=== PATIENT | female | born 1965 | race Caucasian/White ===

== ENCOUNTER → 2017-12-29 10:51 | Outpatient (CLI) | payer OTHER, SELFPAY ==
--- NOTE | 2017-12-29 | DI.MG.S_ITS ---
BILATERAL DIGITAL SCREENING MAMMOGRAM 3D/2D WITH CAD: 12/29/2017 CLINICAL: Routine screening. Family history of breast cancer. Baseline exam. No prior exams were available for comparison. The tissue of both breasts is heterogeneously dense. This may lower the sensitivity of mammography. Current study was also evaluated with a Computer Aided Detection (CAD) system. No significant masses, calcifications, or other findings are seen in either breast. IMPRESSION: NEGATIVE There is no mammographic evidence of malignancy. A 1 year screening mammogram is recommended. This exam was interpreted at Station ID: [id number]. NOTE: For mammograms, a report in lay terms will be sent to the patient. Approximately 15% of breast malignancies will not be visualized mammographically. In the management of a palpable breast mass, a negative mammogram must not discourage biopsy of a clinically suspicious lesion. Electronically Signed By: Venkata mcguire/kumar:12/29/2017 14:48:11 letter sent: Normal Exam ACR BI-RADS Category 1: Negative 3341F
== END ==
PROVIDERS: Family Provider Family Medicine; PCP Family Medicine; Visit Provider Family Medicine
DX: Z12.31 Encounter for screening mammogram for malignant neoplasm of breast (principal); Z80.3 Family history of malignant neoplasm of breast
CPT/HCPCS: 77063; 77067

== ENCOUNTER → 2017-12-30 07:29 | Outpatient (CLI) | payer OTHER, SELFPAY ==
[2017-12-30 08:26] LABS: Add Manual Diff / Slide Review NO; Basophils Percent Auto 2.2 % (0-2); Eosinophils Percent Auto 15.9 % (2-4); Hematocrit 37.7 % (36-46); Hemoglobin 12.3 g/dL (12.0-16.0); Lymphocytes Percent Auto 23.5 % (25-40); Mean Corpuscular HGB Conc 32.5 % (30-36); Mean Corpuscular Hemoglobin 27.7 PG (26-34); Mean Corpuscular Volume 85.3 fL (80-100); Monocytes Percent Auto 6.8 % (3-14); Neutrophils Absolute Auto 2700 /uL (3000-5900); Neutrophils Percent Auto 51.6 % (50-75); Platelet Count 289 X10^3/uL (150-400); Red Blood Cell Count 4.42 X10^6/uL (4.0-5.2); Red Cell Distribution Width 15.6 % (11.6-14.8); White Blood Cell Count 5.2 X10^3/uL (4.5-11.0)
[2017-12-30 08:59] LABS: Alanine Aminotransferase 20 IU/L (9-52); Albumin 3.8 g/dL (3.5-5.0); Albumin Globulin Ratio 1.3 (1.0-2.8); Alkaline Phosphatase 50 U/L (38-126); Aspartate Aminotransferase 20 IU/L (14-36); BUN Creatinine Ratio 16.3 (6-22); Bilirubin Total 0.7 mg/dL (0.2-1.3); Blood Urea Nitrogen 13 mg/dL (7-17); Calcium 8.7 mg/dL (8.4-10.2); Carbon Dioxide 30 mmol/L (22-32); Chloride 105 mmol/L (98-107); Cholesterol 163 mg/dL (140-199); Estimated Glomerular Filt Rate > 60.0 mL/min (>60); Glucose 86 mg/dL (70-100); HDL Cholesterol 60 mg/dL (40-60); HEMOLYSIS < 15 (0-50); LDL Cholesterol Calculated 89 mg/dL (<100); Potassium 3.2 mmol/L (3.4-5.1); Sodium 141 mmol/L (137-145); Total Protein 6.8 g/dL (6.3-8.2); Triglycerides 70 mg/dL (35-150)
[2017-12-30 09:19] LABS: Thyroid Stimulating Hormone 1.74 uIU/mL (0.47-4.68)
== END ==
PROVIDERS: PCP Family Medicine; Visit Provider Family Medicine
DX: J45.909 Unspecified asthma, uncomplicated (principal)
CPT/HCPCS: 36415; 80053; 80061; 84443; 85025

== ENCOUNTER → 2019-11-22 16:45 | Outpatient (CLI) | payer OTHER, SELFPAY ==
--- NOTE | 2019-11-22 16:47 | DI.RAD.S_ITS ---
PROCEDURE: XR CHEST 2V INDICATIONS: chronic cough TECHNIQUE: 2 views of the chest were acquired. COMPARISON: [facility], , CHEST 2 VIEW, 03/30/2015, 9:51. FINDINGS: Surgical changes and devices: None. Lungs and pleura: Lungs are clear. No pleural effusions or pneumothorax. Mediastinum: Mediastinal contours are normal. Heart size is normal. Bones and chest wall: No suspicious bony abnormalities. Thoracic kyphosis noted. Soft tissues appear unremarkable. IMPRESSION: No acute disease Dictated by: Jared Ramirez M.D. on 11/22/2019 at 17:12 Approved by: Jared Ramirez M.D. on 11/22/2019 at 17:13
== END ==
PROVIDERS: Family Provider Family Medicine; PCP Family Medicine; Referring Provider Family Medicine; Visit Provider Family Medicine
DX: R05 Cough (principal); M40.204 Unspecified kyphosis, thoracic region
CPT/HCPCS: 71046

== ENCOUNTER → 2020-10-25 07:13 | Outpatient (CLI) | payer OTHER, SELFPAY ==
[2020-10-25 08:38] LABS: Add Manual Diff / Slide Review NO; Basophils Absolute Auto 100 /uL (0-100); Basophils Percent Auto 1.4 % (0-2); Eosinophils Absolute Auto 600 /uL (0-450); Eosinophils Percent Auto 16.2 % (2-4); Hematocrit 37.2 % (36-46); Hemoglobin 12.4 g/dL (12.0-16.0); Lymphocytes Absolute Auto 1000 /uL (1100-4500); Lymphocytes Percent Auto 26.1 % (25-40); Mean Corpuscular HGB Conc 33.4 % (30-36); Mean Corpuscular Hemoglobin 29.1 PG (26-34); Mean Corpuscular Volume 87.3 fL (80-100); Monocytes Absolute Auto 300 /uL (0-900); Monocytes Percent Auto 7.6 % (3-14); Neutrophils Absolute Auto 1800 /uL (1500-7000); Neutrophils Percent Auto 48.7 % (50-75); Platelet Count 267 X10^3/uL (150-400); Red Blood Cell Count 4.26 X10^6/uL (4.0-5.2); Red Cell Distribution Width 13.3 % (11.6-14.8); White Blood Cell Count 3.7 X10^3/uL (4.5-11.0)
[2020-10-25 08:53] LABS: Alanine Aminotransferase 20 IU/L (<35); Albumin 3.8 g/dL (3.5-5.0); Albumin Globulin Ratio 1.3 (1.0-2.8); Alkaline Phosphatase 56 U/L (38-126); Aspartate Aminotransferase 33 IU/L (14-36); BUN Creatinine Ratio 20.6 (6-22); Bilirubin Total 0.6 mg/dL (0.2-1.3); Blood Urea Nitrogen 13 mg/dL (7-17); Calcium 9.3 mg/dL (8.4-10.2); Carbon Dioxide 29 mmol/L (22-32); Chloride 107 mmol/L (98-107); Cholesterol 185 mg/dL (140-199); Estimated Glomerular Filt Rate > 60.0 mL/min (>60); Globulin 2.9 g/dL (1.7-4.1); Glucose 90 mg/dL (70-100); HDL Cholesterol 64 mg/dL (40-60); HEMOLYSIS < 15 (0-50); LDL Cholesterol Calculated 105 mg/dL (<100); Sodium 142 mmol/L (137-145); Total Protein 6.7 g/dL (6.3-8.2); Triglycerides 78 mg/dL (35-150)
== END ==
PROVIDERS: Family Provider Family Medicine; PCP Family Medicine; Referring Provider Family Medicine; Visit Provider Family Medicine
DX: G47.00 Insomnia, unspecified (principal); J45.40 Moderate persistent asthma, uncomplicated; Z78.0 Asymptomatic menopausal state
CPT/HCPCS: 36415; 80053; 80061; 85025

== ENCOUNTER → 2021-04-19 12:52 | Outpatient (CLI) | payer OTHER, SELFPAY ==
--- NOTE | 2021-04-19 12:54 | DI.RAD.S_ITS ---
PROCEDURE: XR CHEST 2V INDICATIONS: cough, wheezing TECHNIQUE: 2 views of the chest were acquired. COMPARISON: [facility], CR, XR CHEST 2V, 11/22/2019, 16:44. FINDINGS: Surgical changes and devices: None. Lungs and pleura: Lungs are clear. Chronic emphysematous changes are seen. No pleural effusions or pneumothorax. Mediastinum: Tortuous thoracic aorta is noted. Heart size is mildly enlarged. Bones and chest wall: No suspicious bony abnormalities. Soft tissues appear unremarkable. IMPRESSION: COPD and tortuous thoracic aorta. No focal infiltrate, pleural effusion or pneumothorax. Dictated by: Francisco Roberts M.D. on 04/19/2021 at 14:47 Approved by: Francisco Roberts M.D. on 04/19/2021 at 14:48
== END ==
PROVIDERS: Family Provider Family Medicine; PCP Family Medicine; Referring Provider Family Medicine; Visit Provider Family Medicine
DX: J45.40 Moderate persistent asthma, uncomplicated (principal); R05.9 Cough, unspecified
CPT/HCPCS: 71046

== ENCOUNTER → 2021-04-23 09:22 | Outpatient (CLI) | payer OTHER, SELFPAY ==
[2021-04-23 10:01] LABS: COVID19 -Nasal RAPID Negative (Negative)
== END ==
PROVIDERS: Family Provider Family Medicine; PCP Family Medicine; Referring Provider Internal Medicine; Visit Provider Internal Medicine
DX: Z20.822 Contact with and (suspected) exposure to COVID-19 (principal)
CPT/HCPCS: 87635; C9803

== ENCOUNTER → 2021-04-24 09:16 | Outpatient (CLI) | payer OTHER, SELFPAY ==
--- NOTE | 2021-05-02 09:30 | PM.PFT.1 ---
Pulmonary Function Test Referral & Results Date Patient Seen: 04/24/21 Requesting provider: Ron Nevarez Results: The spirometry demonstrates an FVC of 2.99 L which is 73% of predicted. The FEV1 was measured at 2.03 L which is 64% of predicted. The FEV1/FVC ratio was 68 which is 86% of predicted. Following the administration of bronchodilator there was 26% improvement in FEV1 and a 160% improvement in FEF 25-75% Lung volumes show an SVC of 3.20 L which is 87% of predicted. The diffusing capacity was measured at 25.87 which is 83% of predicted. The maximum voluntary ventilation was reduced Interpretation: This study demonstrates probable mild obstructive lung disease based on reduction FEV1 although FEV1/FVC ratio is relatively preserved. There is evidence of significant benefit after the administration of bronchodilator as above both in small airway as well as large airway flow There is minimal reduction in lung volumes suggesting the possibility of minimal restrictive lung disease There is also minimal reduction diffusing capacity suggesting also the possibility of minimal disease at the capillary alveolar level Clinical correlation suggested
== END ==
PROVIDERS: Family Provider Family Medicine; PCP Family Medicine; Referring Provider Family Medicine; Visit Provider Family Medicine
DX: J45.40 Moderate persistent asthma, uncomplicated (principal)
CPT/HCPCS: 94060; 94726; 94729

== ENCOUNTER → 2021-08-16 16:11 | Outpatient (CLI) | payer OTHER, SELFPAY ==
--- NOTE | 2021-08-16 16:12 | DI.ECHO.S_ITS ---
[facility] +---------+ : : [address] [place] [address] : : : : [id number] : : : : Phone: [phone]+ Echocardiogram Report + + :Name: JEFFERSON MOYER Study Date: 08/16/2021 Height: 69 in : [facility] ReadingLocation[facility] Weight: 160 lb : : Gender: Female BSA: 1.9 m2 : :: 1965 Age: 56 yrs BP: 148/93 mmHg: :Reason For Study: ENLARGED HEART ON XRAY, TORTUOUS THORACIC : :AORTA : :Ordering Physician: COLUMBA, : :ANILA Performed By: Regina Ramirez : :Referring: ANILA WATERMAN : + + Interpretation Summary Normal sinus rhythm. Normal LV size and wall thickness. Normal wall motion and left ventricular systolic function. Ejection fraction is 60-65%. Stage I diastolic dysfunction. Mild left atrial enlargement. Otherwise normal chamber sizes. There are no significant valvular abnormalities. Mildly dilated ascending aorta measuring 3.6 cm in diameter. No prior echocardiogram available for comparison. Procedure: A two-dimensional transthoracic echocardiogram with color flow and Doppler was performed. The study quality was technically good. There is no prior echocardiogram noted for this patient. The patient was in sinus rhythm with heart rates between 77-83 bpm during the exam. Left Ventricle: The left ventricle is normal in size and wall thickness. The ejection fraction is estimated to be 60-65%. Right Ventricle: The right ventricle is normal in size and function. Atria: The left atrium is mildly dilated. Right atrial size is normal. There is no Doppler evidence for an interatrial shunt. Mitral Valve: The mitral valve is normal in structure and function. There is mild to moderate mitral regurgitation. Aortic Valve: The aortic valve is trileaflet. The aortic valve opens well. There is no aortic valve stenosis. There is trace aortic regurgitation. Tricuspid Valve: The tricuspid valve is normal in structure and function. There is mild tricuspid regurgitation. The right ventricular systolic pressure is estimated to be at least 32 mmHg based on an estimated right atrial pressure of 8 mm Hg. Pulmonic Valve: The pulmonic valve leaflets are thin and pliable; valve motion is normal. There is no pulmonic valvular regurgitation. Great Vessels: The aortic root is normal size. The ascending aorta is mildly enlarged. The IVC is dilated (diameter is greater than 2.1 cm) yet it collapses greater than 50% with a sniff. This suggests a right atrial pressure of 8 mm Hg. Pericardium/ Pleura There is no pericardial effusion. There is no pleural effusion. MMode/2D Measurements & Calculations LVIDd: 4.4 cm LVOT diam: 2.1 cm LVIDs: 2.9 cm Ao root diam: 3.5 cm FS: 33.9 % asc Aorta Diam: 3.6 cm IVSd: 0.80 cm Ao Arch Diam (Prox Trans): 3.1 cm LVPWd: 0.81 cm LV bella. diameter/BSA (cm/m^2): 2.4 LV sys. diameter/BSA (cm/m^2): 1.6 LA A2 area: 23.4 cm2 RA long axis: 4.6 cm LA A4 area: 21.1 cm2 RA area: 16.8 cm2 LA length (vol): 5.5 cm RA vol: 51.6 ml LA vol: 76.2 ml RA : 27.5 ml/m2 LA vol index: 40.6 ml/m2 IVC diam: 2.7 cm RVD1 (basal): 3.4 cm RVD2 (mid): 3.1 cm TAPSE: 2.4 cm Doppler Measurements & Calculations Ao V2 max: 141.8 cm/sec LVOT Max Lazaro: 93.2 cm/sec Ao V2 mean: 97.5 cm/sec LV V1 max P.5 mmHg Ao max P.1 mmHg LV V1 VTI: 20.2 cm Ao mean P.3 mmHg CAROLYNN(I,D): 2.2 cm2 Ao V2 VTI: 30.4 cm CAROLYNN(V,D): 2.2 cm2 sev ratio: 0.66 CAROLYNN indexed to BSA (cm^2/m^2): 1.2 AI P1/2t: 564.8 msec AI dec slope: 196.4 cm/sec2 MV E max lazaro: 70.4 cm/sec TR max lazaro: 246.1 cm/sec MV A max lazaro: 103.1 cm/sec TR max P.3 mmHg MV E/A: 0.68 PA V2 max: 100.9 cm/sec Med Peak E' Lazaro: 8.1 cm/sec PA V2 mean: 72.1 cm/sec E/E' med: 8.7 PA mean P.3 mmHg Lat Peak E' Lazaro: 8.6 cm/sec PA pr(Accel): 13.9 mmHg E/E' lat: 8.2 E/e' average: 8.4 MV dec time: 0.18 sec SV(OT): 67.0 ml Electronically signed by: Lupis Pearce M.D. on [place] Physician:08/16/2021 05:54 PM
== END ==
PROVIDERS: Family Provider Family Medicine; PCP Family Medicine; Referring Provider Family Medicine; Visit Provider Family Medicine
DX: I08.1 Rheumatic disorders of both mitral and tricuspid valves; I77.1 Stricture of artery; I77.89 Other specified disorders of arteries and arterioles
CPT/HCPCS: 93306

== ENCOUNTER → 2022-09-05 07:05 | Outpatient (CLI) | payer OTHER, SELFPAY ==
--- NOTE | 2022-09-05 07:07 | DI.MG.S_ITS ---
BILATERAL DIGITAL SCREENING MAMMOGRAM 3D/2D WITH CAD: 09/05/2022 CLINICAL: Routine screening. Family history of breast cancer. Comparison is made to exam dated: 12/29/2017 mammogram - [facility]. Both breasts are heterogeneously dense, which may obscure small masses (category c / 51-75% glandular tissue). Current study was also evaluated with a Computer Aided Detection (CAD) system. No significant masses, calcifications, or other findings are seen in either breast. There has been no significant interval change. IMPRESSION: NEGATIVE There is no mammographic evidence of malignancy. A 1 year screening mammogram is recommended. Based on the Tyrer Cuzick model (a risk assessment model) the patient's lifetime risk is 18.8% and her 10 year risk is 6.7%. According to the ACR, ACS, and NCCN guidelines, an annual breast MRI exam along with mammogram is recommended if the patient's lifetime risk is 20% or greater. This exam was interpreted at Station ID: [id number]. NOTE: For mammograms, a report in lay terms will be sent to the patient. Approximately 15% of breast malignancies will not be visualized mammographically. In the management of a palpable breast mass, a negative mammogram must not discourage biopsy of a clinically suspicious lesion. Electronically Signed By: Cory kebede/kumar:09/05/2022 09:30:44 letter sent: Normal Exam ACR BI-RADS Category 1: Negative 3341F
[2022-09-05 08:06] LABS: Add Manual Diff / Slide Review NO; Basophils Absolute Auto 100 /uL (0-100); Eosinophils Absolute Auto 300 /uL (0-450); Eosinophils Percent Auto 6.1 % (2-4); Hematocrit 37.4 % (36-46); Hemoglobin 12.4 g/dL (12.0-16.0); Lymphocytes Absolute Auto 1300 /uL (1100-4500); Lymphocytes Percent Auto 24.2 % (25-40); Mean Corpuscular HGB Conc 33.3 % (30-36); Monocytes Absolute Auto 400 /uL (0-900); Monocytes Percent Auto 7.1 % (3-14); Neutrophils Absolute Auto 3300 /uL (1500-7000); Neutrophils Percent Auto 61.6 % (50-75); Platelet Count 255 X10^3/uL (150-400); Red Cell Distribution Width 13.9 % (11.6-14.8); White Blood Cell Count 5.3 X10^3/uL (4.5-11.0)
[2022-09-05 08:19] LABS: Alanine Aminotransferase 18 IU/L (<35); Albumin 4.2 g/dL (3.5-5.0); Albumin Globulin Ratio 1.5 (1.0-2.8); Alkaline Phosphatase 55 U/L (38-126); Aspartate Aminotransferase 25 IU/L (14-36); BUN Creatinine Ratio 28.2 (6-22); Bilirubin Total 0.9 mg/dL (0.2-1.3); Blood Urea Nitrogen 20 mg/dL (7-17); Calcium 9.4 mg/dL (8.4-10.2); Carbon Dioxide 25 mmol/L (22-32); Chloride 104 mmol/L (98-107); Cholesterol 217 mg/dL (140-199); Estimated Glomerular Filt Rate > 60 mL/min (>60); Globulin 2.8 g/dL (1.7-4.1); Glucose 79 mg/dL (70-100); HDL Cholesterol 96 mg/dL (40-60); HEMOLYSIS < 15 (0-50); LDL Cholesterol Calculated 110 mg/dL (<100); Potassium 4.3 mmol/L (3.4-5.1); Sodium 139 mmol/L (137-145); Triglycerides 57 mg/dL (35-150)
== END ==
PROVIDERS: Family Provider Family Medicine; PCP Family Medicine; Referring Provider Family Medicine; Visit Provider Family Medicine
DX: Z12.31 Encounter for screening mammogram for malignant neoplasm of breast (principal); D72.819 Decreased white blood cell count, unspecified; E78.00 Pure hypercholesterolemia, unspecified; Z80.3 Family history of malignant neoplasm of breast
CPT/HCPCS: 36415; 77063; 77067; 80053; 80061; 85025

== ENCOUNTER → 2023-02-17 13:30 | Outpatient (CLI) | payer OTHER, SELFPAY ==
--- NOTE | 2023-02-17 13:31 | DI.RAD.S_ITS ---
PROCEDURE: XR CHEST 2V INDICATIONS: cough, hx asthma TECHNIQUE: 2 views of the chest were acquired. COMPARISON: [facility], CR, XR CHEST 2V, 11/22/2019, 16:44. [facility], CR, XR CHEST 2V, 04/19/2021, 13:06. FINDINGS: Surgical changes and devices: None. Lungs and pleura: Hyperinflation suggesting COPD. No focal infiltrate or consolidation. No pleural effusions or pneumothorax. Mediastinum: Mediastinal contours are normal. Heart size is normal. Bones and chest wall: There are multiple old right rib fractures. No suspicious bony abnormalities. Soft tissues appear unremarkable. IMPRESSION: 1. No acute cardiopulmonary disease. Dictated by: Dg Vasquez M.D. on 02/17/2023 at 14:28 Approved by: Dg Vasquez M.D. on 02/17/2023 at 14:29
== END ==
PROVIDERS: Family Provider Family Medicine; PCP Family Medicine; Referring Provider Physician Assistant; Visit Provider Physician Assistant
DX: J20.9 Acute bronchitis, unspecified (principal)
CPT/HCPCS: 71046

== ENCOUNTER → 2024-04-23 07:01 | Outpatient (CLI) | payer OTHER, SELFPAY ==
[2024-04-23 07:56] LABS: Add Manual Diff / Slide Review NO; Basophils Absolute Auto 100 /uL (0-100); Basophils Percent Auto 1.4 % (0-2); Eosinophils Absolute Auto 500 /uL (0-450); Eosinophils Percent Auto 10.6 % (2-4); Hematocrit 37.5 % (36-46); Hemoglobin 12.5 g/dL (12.0-16.0); Lymphocytes Absolute Auto 1300 /uL (1100-4500); Lymphocytes Percent Auto 27.2 % (25-40); Mean Corpuscular HGB Conc 33.3 % (30-36); Mean Corpuscular Hemoglobin 29.6 PG (26-34); Monocytes Absolute Auto 300 /uL (0-900); Monocytes Percent Auto 6.7 % (3-14); Neutrophils Absolute Auto 2600 /uL (1500-7000); Neutrophils Percent Auto 54.1 % (50-75); Platelet Count 267 X10^3/uL (150-400); Red Blood Cell Count 4.22 X10^6/uL (4.0-5.2); Red Cell Distribution Width 13.5 % (11.6-14.8); White Blood Cell Count 4.7 X10^3/uL (4.5-11.0)
[2024-04-23 08:20] LABS: Alanine Aminotransferase 15 IU/L (<35); Albumin Globulin Ratio 1.6 (1.0-2.8); Alkaline Phosphatase 56 U/L (38-126); Aspartate Aminotransferase 27 IU/L (14-36); BUN Creatinine Ratio 26.5 (6-22); Bilirubin Total 1.1 mg/dL (0.2-1.3); Blood Urea Nitrogen 18 mg/dL (7-17); Calcium 9.3 mg/dL (8.4-10.2); Carbon Dioxide 26 mmol/L (22-32); Chloride 106 mmol/L (98-107); Cholesterol 189 mg/dL (140-199); Estimated Glomerular Filt Rate > 60 mL/min (>60); Globulin 2.5 g/dL (1.7-4.1); Glucose 81 mg/dL (70-100); HDL Cholesterol 89 mg/dL (40-60); HEMOLYSIS < 15 (0-50); LDL Cholesterol Calculated 91 mg/dL (<100); Sodium 138 mmol/L (137-145); Total Protein 6.5 g/dL (6.3-8.2); Triglycerides 46 mg/dL (35-150)
[2024-04-23 08:51] LABS: TSH w/ Reflex to FT4 1.68 uIU/mL (0.47-4.68)
[2024-04-24 04:36] LABS: Apolipoprotein B 77 mg/dL (<90)
== END ==
PROVIDERS: Family Provider Family Medicine; PCP Family Medicine; Referring Provider Family Medicine; Visit Provider Family Medicine
DX: J45.40 Moderate persistent asthma, uncomplicated (principal); G47.00 Insomnia, unspecified; G43.909 Migraine, unspecified, not intractable, without status migrainosus; Z12.11 Encounter for screening for malignant neoplasm of colon; E78.00 Pure hypercholesterolemia, unspecified; D72.819 Decreased white blood cell count, unspecified
CPT/HCPCS: 36415; 80053; 80061; 82172; 84443; 85025

== ENCOUNTER → 2024-05-28 08:27 | Outpatient (CLI) | payer OTHER, SELFPAY ==
--- NOTE | 2024-05-28 08:28 | DI.RAD.S_ITS ---
PROCEDURE: XR CHEST 2V INDICATIONS: rule out pneumonia TECHNIQUE: 2 views of the chest were acquired. COMPARISON: [facility], CR, XR CHEST 2V, 02/17/2023, 13:58. FINDINGS: Surgical changes and devices: None. Lungs and pleura: Lungs appear clear. No pleural effusions or pneumothorax. Mediastinum: Mediastinal contours are unchanged. Small hiatal hernia. Heart size is normal. Bones and chest wall: No suspicious bony abnormalities. Kyphoscoliosis. Prior rib fractures. Soft tissues appear unremarkable. IMPRESSION: No consolidation identified. Dictated by: Derrick Greenfield M.D. on 05/28/2024 at 8:48 Approved by: Derirck Greenfield M.D. on 05/28/2024 at 8:50
== END ==
PROVIDERS: Family Provider Family Medicine; PCP Family Medicine; Referring Provider Nurse Practitioner Family; Visit Provider Nurse Practitioner Family
DX: J20.9 Acute bronchitis, unspecified (principal); K44.9 Diaphragmatic hernia without obstruction or gangrene; M41.9 Scoliosis, unspecified; Z87.81 Personal history of (healed) traumatic fracture
CPT/HCPCS: 71046

== ENCOUNTER → 2024-06-24 08:02 | Outpatient (CLI) | payer OTHER, SELFPAY ==
--- NOTE | 2024-06-24 08:03 | DI.MG.S_ITS ---
BILATERAL DIGITAL SCREENING MAMMOGRAM 3D/2D WITH CAD: 06/24/2024 CLINICAL: Routine screening. Family history of breast cancer. Comparison is made to exams dated: 09/05/2022 mammogram and 12/29/2017 mammogram - . There are scattered areas of fibroglandular density (category b / 25%-50% glandular tissue). Current study was also evaluated with a Computer Aided Detection (CAD) system. No significant masses, calcifications, or other findings are seen in either breast. There has been no significant interval change. IMPRESSION: NEGATIVE There is no mammographic evidence of malignancy. A 1 year screening mammogram is recommended. Based on the Tyrer Cuzick model (a risk assessment model) the patient's lifetime risk is 12.3% and her 10 year risk is 4.8%. According to the ACR, ACS, and NCCN guidelines, an annual breast MRI exam along with mammogram is recommended if the patient's lifetime risk is 20% or greater. This exam was interpreted at Station ID: [id number]. NOTE: For mammograms, a report in lay terms will be sent to the patient. Approximately 15% of breast malignancies will not be visualized mammographically. In the management of a palpable breast mass, a negative mammogram must not discourage biopsy of a clinically suspicious lesion. Electronically Signed By: Miguel Angel ott/kumar:06/24/2024 09:04:19 letter sent: Normal Exam ACR BI-RADS Category 1: Negative
== END ==
PROVIDERS: Family Provider Family Medicine; PCP Family Medicine; Referring Provider Family Medicine; Visit Provider Family Medicine
DX: Z12.31 Encounter for screening mammogram for malignant neoplasm of breast (principal); J45.40 Moderate persistent asthma, uncomplicated; G47.00 Insomnia, unspecified; G43.909 Migraine, unspecified, not intractable, without status migrainosus; D72.819 Decreased white blood cell count, unspecified; E78.00 Pure hypercholesterolemia, unspecified; Z12.11 Encounter for screening for malignant neoplasm of colon; Z80.3 Family history of malignant neoplasm of breast
CPT/HCPCS: 77063; 77067

== ENCOUNTER → 2025-02-08 07:29 | Outpatient (CLI) | payer OTHER, SELFPAY ==
[2025-02-08 07:52] LABS: Add Manual Diff / Slide Review NO; Hematocrit 35.9 % (36-46); Hemoglobin 12.1 g/dL (12.0-16.0); Lymphocytes Absolute Auto 1400 /uL (1100-4500); Mean Corpuscular HGB Conc 33.7 % (30-36); Mean Corpuscular Hemoglobin 30.1 PG (26-34); Mean Corpuscular Volume 89.3 fL (80-100); Platelet Count 281 X10^3/uL (150-400)
[2025-02-08 08:12] LABS: Alanine Aminotransferase 14 IU/L (<35); Albumin 4.0 g/dL (3.5-5.0); Albumin Globulin Ratio 1.5 (1.0-2.8); Alkaline Phosphatase 53 U/L (38-126); Blood Urea Nitrogen 15 mg/dL (7-17); Calcium 9.1 mg/dL (8.4-10.2); Carbon Dioxide 26 mmol/L (22-32); Chloride 107 mmol/L (98-107); Cholesterol 207 mg/dL (140-199); Estimated Glomerular Filt Rate > 60 mL/min (>60); Globulin 2.6 g/dL (1.7-4.1); Glucose 90 mg/dL (70-99); HDL Cholesterol 87 mg/dL (40-60); HEMOLYSIS < 15 (0-50); Potassium 3.6 mmol/L (3.4-5.1); Sodium 139 mmol/L (137-145); Total Protein 6.6 g/dL (6.3-8.2); Triglycerides 50 mg/dL (35-150)
[2025-02-08 08:40] LABS: TSH w/ Reflex to FT4 2.12 uIU/mL (0.47-4.68)
== END ==
PROVIDERS: PCP Family Medicine; Referring Provider Family Medicine; Visit Provider Family Medicine
DX: Z00.00 Encounter for general adult medical examination without abnormal findings (principal); J45.30 Mild persistent asthma, uncomplicated; G43.909 Migraine, unspecified, not intractable, without status migrainosus; Z78.0 Asymptomatic menopausal state; J45.40 Moderate persistent asthma, uncomplicated; F51.01 Primary insomnia; E78.00 Pure hypercholesterolemia, unspecified; D72.819 Decreased white blood cell count, unspecified
CPT/HCPCS: 36415; 80053; 80061; 84443; 85025

== ENCOUNTER → 2025-03-25 10:06 | Outpatient (CLI) | payer OTHER, SELFPAY ==
[2025-03-25 10:59] LABS: Influenza A - CEPHEID Flu A NEGATIVE (NEGATIVE); Influenza B - CEPHEID Flu B NEGATIVE (NEGATIVE)
[2025-03-25 11:00] LABS: COVID-19 CEPHEID 4-PLEX PCR Negative (Negative)
== END ==
PROVIDERS: PCP Family Medicine; Visit Provider Family Medicine
DX: R05.1 Acute cough (principal)
CPT/HCPCS: 87637